=== PATIENT | female | born 1990 | race Caucasian/White ===

== ENCOUNTER → 2017-06-23 | Outpatient (REF) | payer OTHER ==
[2017-06-23 12:47] LABS: PLATELET COUNT, AUTOMATED 322 K/uL (150-450)
== END ==
PROVIDERS: ATTEND Nurse Practitioner Family
DX: R10.9 Unspecified abdominal pain (principal)
CPT/HCPCS: 82040; 82247; 82310; 82374; 82435; 82565; 82947; 84075; 84132; 84155; 84295; 84450; 84460; 84520; 85025

== ENCOUNTER → 2017-06-23 | Outpatient (CLI) | payer OTHER ==
--- NOTE | 2017-06-23 15:56 | RADIOLOGY IMAGING REPORT ---
[place] [facility] [place] NAME: Nazia Merrill : 1990 MR: [id number] V: [id number] EXAM DATE: ORDERING PHYSICIAN: LUZ CHAVIRA TECHNOLOGIST: Location: [facility] Patient: Nzaia Merrill : 1990 Visit/Account:[id number] Date of Sevice: 06/23/2017 EXAMINATION: Transvaginal pelvic ultrasound with duplex Doppler evaluation 06/23/2017 1:57 PM HISTORY: Pain for 18 hours in the left lower quadrant.; LMP: Not recorded COMPARISON STUDIES: none. FINDINGS: Uterus: 7.1 x 4.1 x 5.0 cm Myometrium: negative Endometrium: Appropriately positioned IUD without myometrial penetration. Normal endometrial thicknes s at 4 to 5 mm. Cervix: At least one small nabothian cyst. Ovaries: right ovary 2.2 x 1.9 x 2.4 cm, left ovary 2.4 x 1.6 x 2.2 cm, multiple small follicles in e ach ovary without a clear pattern of PCOS. Blood flow is documented in each ovary by Doppler ultrasound. Adnexa: negative Free pelvic fluid: Free fluid adjacent to the left ovary and the uterus. IMPRESSION: 1. Free fluid adjacent to the left ovary and the uterus. This potentially indicates recent ovarian fo llicle rupture. 2. There are normal-appearing small follicles on each ovary. 3. Well positioned IUD. I called report to LUZ CHAVIRA at 06/23/2017 3:52 PM. Report Dictated By: Jr Caldwell MD at 06/23/2017 3:40 PM Report E-Signed By: Jr Caldwell MD at 06/23/2017 3:52 PM WSN:[id number]
== END ==
LOC: US 13:24
PROVIDERS: ATTEND Nurse Practitioner Family
DX: N88.8 Other specified noninflammatory disorders of cervix uteri (principal); Z97.5 Presence of (intrauterine) contraceptive device
CPT/HCPCS: 76856